=== PATIENT | male | born 1985 | race Two or more races ===

== ENCOUNTER 2017-10-12 17:58 | Emergency (ER) | payer OTHER ==
[~2017-10-12] VITALS: Ht 185.4 cm; Wt 83.9 kg
--- NOTE | 2017-10-12 18:26 | NUR ---
Patient is AOx4, c/o visual disturbances to both eyes, denies trauma or pains to both eyes, denies vision loss, MD is at bedside
--- NOTE | 2017-10-12 18:34 | NUR ---
Patient discharged to home in stable conditon. Written and verbal after care instructions given to patient. Patient verbalizes understanding of instructions.
== END 2017-10-12 18:41 | disposition home or self-care (01) ==
LOC: ER 18:04
DX: H43.313 Vitreous membranes and strands, bilateral (principal)
CPT/HCPCS: A4663